=== PATIENT | male | born 1940 | race Caucasian/White ===

== ENCOUNTER → 2016-10-12 | Outpatient (CLI) | payer MEDICARE, OTHER ==
[2016-10-12 08:06] LABS: BASOPHILS % (AUTO) 1 % (0-2); EOSINOPHILS # (AUTO) 0.1 10^3uL; EOSINOPHILS % (AUTO) 1 % (0-4); LYMPHOCYTES # (AUTO) 1.8 X10^3; MEAN CORPUSCULAR VOLUME 95 FL (80-100); MONOCYTES # (AUTO) 0.8 X10^3; MONOCYTES % (AUTO) 18 % (3-11); NEUTROPHILS # (AUTO) 1.7 X10^3; NEUTROPHILS % (AUTO) 40 % (51-67); PLATELET COUNT 83 10^3uL (150-450); WHITE BLOOD COUNT 4.35 10^3uL (4.0-11.0)
[2016-10-12 08:08] LABS: BILIRUBIN,URINE Negative (Negative); CLARITY,URINE Clear; COLOR,URINE Yellow; GLUCOSE, URINE (UA) Negative (Negative); LEUKOCYTE ESTERASE ,URINE Negative (Negative); MEAN CORPUSCULAR HGB CONC 35.9 g/dL (31.0-37.0); UROBILINOGEN,URINE 0.2 mg/dL (0.2-1.0)
[2016-10-12 08:29] LABS: ALBUMIN 4.3 g/dL (3.4-5.0); ANION GAP 15.7 MEQ/L (3-15); TOTAL PROTEIN 7.6 g/dL (6.4-8.5)
[2016-10-12 08:31] LABS: URINE CENTRIFUGED VOLUME 10 mL
[2016-10-12 08:32] LABS: RBC,URINE 0-2 /HPF
[2016-10-12 08:48] LABS: ERYTHROCYTE SEDIMENTATION RT* 21 mm/hr (0-19)
== END ==
LOC: RAD 07:34
PROVIDERS: ATTEND Family Medicine
DX: I25.10 Atherosclerotic heart disease of native coronary artery without angina pectoris (principal); J01.40 Acute pansinusitis, unspecified; R79.89 Other specified abnormal findings of blood chemistry; E78.2 Mixed hyperlipidemia; D50.8 Other iron deficiency anemias; N39.0 Urinary tract infection, site not specified; M79.7 Fibromyalgia; G72.0 Drug-induced myopathy; E13.65 Other specified diabetes mellitus with hyperglycemia; Z12.5 Encounter for screening for malignant neoplasm of prostate; E03.2 Hypothyroidism due to medicaments and other exogenous substances; M81.0 Age-related osteoporosis without current pathological fracture
CPT/HCPCS: 36415; 70210; 71020; 80053; 80061; 81003; 81015; 82360; 82550; 83036; 84436; 84443; 85025; 85652; 86140; 93005; G0103; 82306; 84153

== ENCOUNTER → 2016-11-08 | Outpatient (CLI) | payer MEDICARE, OTHER | LOC: RAD 12:17 | PROVIDERS: ATTEND Family Medicine | DX: I35.0 Nonrheumatic aortic (valve) stenosis (principal) | CPT/HCPCS: 93306 ==

== ENCOUNTER → 2017-01-10 | Outpatient (CLI) | payer MEDICARE, OTHER ==
[~2017-01-10] MED LIST: ASP81CT PO; ATOR10TA PO; B.AN1CAP PO; CALCIUM MAGNES1 EAC1 PO; CARV25TA30 PO; DULO60CA7 PO; ECHI167T PO; GINS100C PO; LEVO500T16 PO; LSNP20T PO; MULT-35 PO; SULF-221 PO; ZINC50TA31 PO
[2017-01-10 07:54] LABS: MEAN CORPUSCULAR HGB CONC 34.2 g/dL (31.0-37.0); MEAN CORPUSCULAR VOLUME 97 FL (80-100); MEAN PLATELET VOLUME 10.7 FL (6.0-9.5); PLATELET COUNT 72 10^3uL (150-450); WHITE BLOOD COUNT 4.13 10^3uL (4.0-11.0)
[2017-01-10 08:05] LABS: MEAN CORPUSCULAR HEMOGLOBIN 33.1 PG (26.0-34.0)
[2017-01-10 08:24] LABS: BAND NEUTROPHILS % 1 % (0-6); EOSINOPHILS % 1 % (0-4); LYMPHOCYTES # 1.6 #; MONOCYTES # 0.4 #; MONOCYTES % 11 % (3-11); RBC MORPH NORMAL (NORMAL); SEGMENTED NEUTROPHILS % 48 % (51-67); TOTAL CELLS COUNTED 100
[2017-01-10 08:36] LABS: ERYTHROCYTE SEDIMENTATION RT* 16 mm/hr (0-19)
[2017-01-10 14:50] LABS: GGT 41 U/L (12-64)
== END ==
LOC: LAB 07:19
PROVIDERS: ATTEND Family Medicine
DX: K71.2 Toxic liver disease with acute hepatitis (principal); A69.20 Lyme disease, unspecified
CPT/HCPCS: 36415; 82977; 85025; 85652; 86140; 86618